=== PATIENT | male | born 1970 | race Two or more races ===

== ENCOUNTER → 2021-12-22 | Outpatient (CLI) | payer BC ==
[2021-12-22 07:50] LABS: Basophils # (auto) 0 10 ^3/uL (0-0.2); Eosinophils # (auto) 0.2 10 ^3/uL (0-0.8); Mean Corpuscular Hgb Conc. 34.7 g/dL (32.0-36.0); Neutrophils # (auto) 2.5 10 ^3/uL (1.6-8.6); Red Cell Distribution Width 13.7 % (11.8-14.3)
[2021-12-22 07:52] LABS: Basophils % (auto) 0.8 % (0.0-2.0); Eosinophils % (auto) 4.3 % (0.0-7.0); Hematocrit 43.9 % (41.0-53.0); Hemoglobin 15.2 g/dL (13.5-17.5); Lymphocytes # (auto) 1.5 10 ^3/uL (0.4-5.4); Lymphocytes % (auto) 30.7 % (10.0-50.0); Mean Corpuscular Hemoglobin 34.4 pg (28.0-32.0); Monocytes # (auto) 0.6 10 ^3/uL (0-1.3); Neutrophils % (auto) 52.2 % (37.0-80.0); Nucleated Red Blood Cells % 0.3 %; Red Blood Cells 4.43 10^6/uL (4.5-5.90); White Blood Cell 4.8 10^3/uL (4.4-10.8)
[2021-12-22 08:33] LABS: Albumin 3.6 g/dL (3.4-5.0); Calcium 8.9 mg/dL (8.5-10.1); Potassium 3.7 mmol/L (3.5-5.1)
[2021-12-22 08:38] LABS: BUN/Creatinine Ratio 11.4; Bilirubin, Total 0.6 mg/dL (0.2-1.0); Total Protein 7.8 g/dL (6.4-8.2)
== END | disposition home or self-care (01) ==
LOC: LAB 06:42
PROVIDERS: ATTEND Nurse Practitioner Family
DX: Z00.00 Encounter for general adult medical examination without abnormal findings (principal); I10 Essential (primary) hypertension; D50.9 Iron deficiency anemia, unspecified; R35.1 Nocturia; R73.03 Prediabetes
CPT/HCPCS: 36415; 80053; 80061; 82043; 83036; 84153; 85025

== ENCOUNTER → 2024-07-04 | Outpatient (CLI) | payer BC ==
[2024-07-04 08:58] LABS: Basophils # (auto) 0 10 ^3/uL (0-0.2); Basophils % (auto) 0.9 % (0.0-2.0); Eosinophils # (auto) 0.4 10 ^3/uL (0-0.8); Eosinophils % (auto) 9.3 % (0.0-7.0); Hematocrit 43.4 % (41.0-53.0); Hemoglobin 14.9 g/dL (13.5-17.5); Lymphocytes # (auto) 1.2 10 ^3/uL (0.4-5.4); Lymphocytes % (auto) 31.4 % (10.0-50.0); Mean Corpuscular Hemoglobin 34.6 pg (28.0-32.0); Mean Corpuscular Hgb Conc. 34.3 g/dL (32.0-36.0); Mean Corpuscular Volume 100.9 fL (80.0-100.0); Monocytes # (auto) 0.4 10 ^3/uL (0-1.3); Monocytes % (auto) 10.9 % (0.0-12.0); Neutrophils # (auto) 1.8 10 ^3/uL (1.6-8.6); Neutrophils % (auto) 47.5 % (37.0-80.0); Platelet Count (auto) 210 10^3/uL (140-450); Red Cell Distribution Width 14.4 % (11.8-14.3); White Blood Cell 3.8 10^3/uL (4.4-10.8)
[2024-07-04 09:46] LABS: Alanine Aminotransferase 45 U/L (7-40); Albumin 4.5 g/dL (3.2-4.8); Alkaline Phosphatase 76 U/L (46-116); Anion Gap 8 (5-15); Aspartate Aminotransferase 40 U/L (13-40); BUN/Creatinine Ratio 10.3 (10.0-20.0); Blood Urea Nitrogen 9 mg/dL (9-23); Calcium 9.4 mg/dL (8.7-10.4); Carbon Dioxide 26 mmol/L (20-31); Chloride 106 mmol/L (98-107); Glucose 113 mg/dL (74-106); LDL Cholesterol 158 mg/dL (< 100); Potassium 4.2 mmol/L (3.5-5.1); Sodium 140 mmol/L (136-145); Triglycerides 132 mg/dL (< 150)
[2024-07-04 09:47] LABS: Bilirubin, Total 0.6 mg/dL (0.2-1.0); Cholesterol 257 mg/dL (< 200); HDL Cholesterol 88 mg/dL (40-59); Total Protein 7.5 g/dL (5.7-8.2)
[2024-07-04 10:59] LABS: Prostate Specific Antigen 0.53 ng/mL (0.0-4.0)
[2024-07-04 11:05] LABS: Free T4 (Free Thyroxine) 1.03 ng/dL (0.89-1.76)
== END | disposition home or self-care (01) ==
LOC: LAB 08:14
PROVIDERS: ATTEND Nurse Practitioner Family
DX: I10 Essential (primary) hypertension (principal); R73.03 Prediabetes; R35.1 Nocturia; E66.01 Morbid (severe) obesity due to excess calories
CPT/HCPCS: 36415; 80053; 80061; 82043; 82306; 83036; 84153; 84439; 84443; 85025

== ENCOUNTER 2024-12-07 15:02 | Inpatient (IN) | payer BC ==
[~2024-12-07] VITALS: Ht 172.7 cm; Wt 102.4 kg
[2024-12-07 15:37] LABS: Basophils # (auto) 0 10 ^3/uL (0-0.2); Basophils % (auto) 0.5 % (0.0-2.0); Eosinophils # (auto) 0.1 10 ^3/uL (0-0.8); Eosinophils % (auto) 2.3 % (0.0-7.0); Hematocrit 45.5 % (41.0-53.0); Hemoglobin 15.5 g/dL (13.5-17.5); Lymphocytes % (auto) 24.9 % (10.0-50.0); Mean Corpuscular Volume 100.1 fL (80.0-100.0); Monocytes # (auto) 0.5 10 ^3/uL (0-1.3); Monocytes % (auto) 13.6 % (0.0-12.0); Neutrophils # (auto) 2.3 10 ^3/uL (1.6-8.6); Neutrophils % (auto) 58.7 % (37.0-80.0); Platelet Count (auto) 200 10^3/uL (140-450); Red Blood Cells 4.55 10^6/uL (4.5-5.90); Red Cell Distribution Width 14.6 % (11.8-14.3)
--- NOTE | 2024-12-07 15:44 | ED.PDOC ---
HPI Comments 54-year-old male who comes in with chief complaint of chest pain. The patient states that the pain has been going on approximately one week off and on. The pain is left-sided and nonradiating. There is no associated nausea, vomiting or shortness for breath. The patient also denies any history of this in the past. The patient states that the pain is dull. It began at rest and he is now rating it as a 2/10. The patient was able to ambulate into the emergency department's without any difficulty. Chief Complaint: Chest Pain Time Seen by MD: 15:12 Primary Care Provider: unknown Reviewed Notes: Nurses Notes, Medications, Allergies (No allergies to medications) Allergies: Coded Allergies: NO KNOWN ALLERGIES (Unverified , 12/07/24) Information Source: Patient Mode of Arrival: Ambulatory Severity: Moderate Timing: Days Duration: Intermittent Prehospital treatment: None Location: Chest (L) Radiation: No Radiation Quality: Other (Dull pressure-like pain) Onset: At Rest Cardiac Risk Factors: HTN PE Risk Factors: None History of: None Modifying Factors: Nothing Associated Signs and Symptoms: None Past Medical History PAST MEDICAL HISTORY: HTN Family History Family History: No family hx of Cancer, No family hx of DM, No family hx of Heart constance Social History Smoker: Non-Smoker Alcohol: Occasionally Drugs: Denies Drug Use Lives In: Home Constitutional: denies: chills, diaphoresis, fatigue, fever, malaise, sweats, weakness, others EENTM: denies: blurred vision, double vision, ear bleeding, ear discharge, ear drainage, ear pain, ear ringing, eye pain, eye redness, hearing loss, mouth pain, mouth swelling, nasal discharge, nose bleeding, nose congestion, nose pain, photophobia, tearing, throat pain, throat swelling, voice changes, others Respiratory: denies: cough, hemoptysis, orthopnea, SOB at rest, shortness of breath, SOB with excertion, stridor, wheezing, others Cardiovascular: reports: chest pain; denies: dizzy spells, diaphoresis, Dyspnea on exertion, edema, irregular heart beat, left arm pain, lightheadedness, palpitations, PND, syncope, others Gastrointestinal: denies: abdomen distended, abdominal pain, blood streaked bowels, constipated, diarrhea, dysphagia, difficulty swallowing, hematemesis, melena, nausea, poor appetite, poor fluid intake, rectal bleeding, rectal pain, vomiting, others Genitourinary: denies: burning, dysuria, flank pain, frequency, hematuria, incontinence, penile discharge, penile sore, pain, testicle pain, testicle swelling, urgency, others Neurological: denies: dizziness, fainting, headache, left sided numbness, left sided weakness, numbness, paresthesia, pre-existing deficit, right sided numbness, right sided weakness, seizure, speech problems, tingling, tremors, weakness, others Musculoskeletal: denies: back pain, gout, joint pain, joint swelling, muscle pain, muscle stiffness, neck pain, others Integumetry: denies: bruises, change in color, change in hair/nails, dryness, laceration, lesions, lumps, rash, wounds, others Allergic/Immunocompromised: denies: Difficulty Healing, Frequent Infections, Hives, Itching, others Hematologic/Lymphatic: denies: anemia, blood clots, easy bleeding, easy bruising, swollen glands, others Endocrine: denies: excessive hunger, excessive sweating, excessive thirst, excessive urination, flushing, intolerance to cold, intolerance to heat, unexplained weight gain, unexplained weight loss, others Psychiatric: denies: anxiety, bipolar disorder, depression, hopeless, panic disorder, schizophrenia, sleepless, suicidal, others Physical Exam General Appearance: Moderate Distress HEENT: Normal ENT Inspection, Pharynx Normal, TMs Normal Neck: Full Range of Motion, Non-Tender, Normal, Normal Inspection Respiratory: Chest Non-Tender, Lungs Clear, No Accessory Muscle Use, No Respiratory Distress, Normal Breath Sounds Cardiovascular: No Edema, No JVD, No Murmur, No Gallop, Normal Peripheral Pulses, Regular Rate/Rhythm Breast Exam: Deferred Gastrointestinal: No Organomegaly, Non Tender, No Pulsatile Mass, Normal Bowel Sounds, Soft Genitalia: Deferred Pelvic: Deferred Rectal: Deferred Extremities: No calf tenderness, Normal capillary refill, Normal inspection, Normal range of motion, Non-tender, No pedal edema Musculoskeletal : Apperance: Normal Neurologic: Alert, 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 Was a procedure done?: No CP Differential Dx Differential Diagnosis: Angina, [place], Pulmonary Embolus Differential Diagnosis: CHF Differential Diagnosis: Pericarditis X-Ray, Labs, Meds, VS Vital Signs Date Time Temp Pulse Resp B/P (MAP) Pulse Ox O2 Delivery O2 Flow Rate FiO2 12/07/24 19:04 75 18 98 Room Air* 0 21 12/07/24 19:00 98.3 75 18 147/103 (118) 98 98.3 12/07/24 18:30 68 18 139/96 (110) 98 12/07/24 16:20 101 12/07/24 16:20 97.9 101 18 138/96 (110) 100 97.9 12/07/24 15:52 90 12/07/24 15:52 101 12/07/24 15:10 97.9 101 18 137/96 (110) 100 97.9 12/07/24 15:07 101 Lab Test 12/07/24 16:17 12/07/24 16:06 12/07/24 15:14 Range/Units Urine Color Light-yellow Yellow Urine Clarity Clear Clear Urine pH 5.5 5.0-9.0 Urine Specific [place] 1.013 1.001-1.035 Urine Protein Negative Negative Urine Ketones Negative Negative Urine Blood Negative Negative /uL Urine Nitrite Negative Negative Urine Bilirubin Negative Negative Urine Urobilinogen Normal Negative mg/dL Urine Leukocyte Esterase Negative Negative /uL Urine RBC <1 0 - 3 /hpf Urine Microscopic WBC 0-3 /HPF Urine Squamous Epithelial Cells None seen <5 /hpf Urine Bacteria None seen None Seen /hpf Urine Glucose Normal Normal mg/dL Troponin I High Sensitivity 3 L < 3 L </=54 ng/L White Blood Count 4.0 L 4.4-10.8 10^3/uL Red Blood Count 4.55 4.5-5.90 10^6/uL Hemoglobin 15.5 13.5-17.5 g/dL Hematocrit 45.5 41.0-53.0 % Mean Corpuscular Volume 100.1 H 80.0-100.0 fL Mean Corpuscular Hemoglobin 34.0 H 28.0-32.0 pg Mean Corpuscular Hemoglobin Concent 34.0 32.0-36.0 g/dL Red Cell Distribution Width 14.6 H 11.8-14.3 % Platelet Count 200 140-450 10^3/uL Mean Platelet Volume 8.1 6.9-10.8 fL Neutrophils (%) (Auto) 58.7 37.0-80.0 % Lymphocytes (%) (Auto) 24.9 10.0-50.0 % Monocytes (%) (Auto) 13.6 H 0.0-12.0 % Eosinophils (%) (Auto) 2.3 0.0-7.0 % Basophils (%) (Auto) 0.5 0.0-2.0 % Neutrophils # (Auto) 2.3 1.6-8.6 10 ^3/uL Lymphocytes # (Auto) 1.0 0.4-5.4 10 ^3/uL Monocytes # (Auto) 0.5 0-1.3 10 ^3/uL Eosinophils # (Auto) 0.1 0-0.8 10 ^3/uL Basophils # (Auto) 0 0-0.2 10 ^3/uL Nucleated Red Blood Cells 0.0 % D-Dimer, Quantitative < 0.19 0.0-0.49 mg/L FEU Sodium Level 141 136-145 mmol/L Potassium Level 4.0 3.5-5.1 mmol/L Chloride Level 107 98-107 mmol/L Carbon Dioxide Level 25 20-31 mmol/L Anion Gap 9 5-15 Blood Urea Nitrogen 10 9-23 mg/dL Creatinine 0.93 0.700-1.30 mg/dL Glomerular Filtration Rate Calc 96 >90 mL/min BUN/Creatinine Ratio 10.8 10.0-20.0 Serum Glucose 122 H 74-106 mg/dL Calcium Level 10.4 8.7-10.4 mg/dL Current Medications Medications (Trade) Dose Ordered Sig/Irving Route Start Time Stop Time Status Last Admin Aspirin 162 mg ONCE ONCE PO 12/07/24 15:30 12/07/24 15:31 DC 12/07/24 16:15 IV Hep-Lock was established The CBC is within normal limits. The patient was being given aspirin here in the emergency department's PROCEDURE(s): CXR2 - CHEST TWO VIEWS ROUTINE Impression: Frontal and lateral chest radiographs demonstrate no acute osseous or superficial soft tissue abnormalities. The trachea is midline. The cardiac silhouette and mediastinum are within normal limits. No pneumothorax, pleural effusions, or consolidations. The patient was having a nitro strip placed on his chest The patient's CBC and chemistry panel are within normal limits The D-dimer and troponin level are negative The urine test is negative The patient was given aspirin 162 mg by mouth here in the emergency department's The patient was being admitted at this time Images Reviewed?: Images reviewed and evaluated by me Time of 1ST Reevaluation: 15:51 Reevaluation 1ST: Unchanged Patient Education/Counseling: Diagnosis, Treatment, Prognosis Family Education/Counseling: Diagnosis, Treatment, Prognosis Departure 1 Departure Time of Disposition: 19:36 Impression: Primary Impression: Acute chest pain Additional Impression: Acute coronary syndrome Disposition: 09 ADMITTED INPATIENT Admit to: Tele Condition: Fair Critical Care Note Critical Care Time?: No Stability Stability form required: Yes Unstable for transfer: Telemetry monitoring (Telemetry monitoring required), ED Physician Assesment (Clinical assesment) Heart Score Heart Score: Heart Score Response (Comments) Value History Moderate Suspicious 1 EKG Repolarization Disturb 1 Age 45-64 1 Risk Factors 1 or 2 risk factors 1 Troponin Normal limit 0 Total 4 I personally scribed for PARAM FLORES MD ([email or web address]) on 12/07/24 at 16:19. Electronically submitted by Iona Hackett ([email or web address]). PARAM FLORES MD Dec 07, 2024 15:44
--- NOTE | 2024-12-07 15:53 | DVH ---
EXAM: XY CHEST TWO VIEWS ROUTINE TECHNIQUE: Two radiographic views of the chest CLINICAL HISTORY: cp COMPARISON: None Findings/Impression: Frontal and lateral chest radiographs demonstrate no acute osseous or superficial soft tissue abnorma lities. The trachea is midline. The cardiac silhouette and mediastinum are within normal limits. No pneumothorax, pleural effusions, or consolidations.
--- NOTE | 2024-12-07 15:53 | ECG ---
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
[2024-12-07 15:54] LABS: Chloride 107 mmol/L (98-107); Sodium 141 mmol/L (136-145)
[2024-12-07 15:55] LABS: Anion Gap 9 (5-15); Calcium 10.4 mg/dL (8.7-10.4); Carbon Dioxide 25 mmol/L (20-31)
[2024-12-07 16:00] LABS: BUN/Creatinine Ratio 10.8 (10.0-20.0); Blood Urea Nitrogen 10 mg/dL (9-23)
[2024-12-07 16:01] LABS: Glucose 122 mg/dL (74-106)
[2024-12-07] MEDS: ASPirin 81 mg TAB PO ONE (16:15)
[2024-12-07 16:45] LABS: Urine Bacteria None Seen /hpf (None Seen)
[2024-12-07 16:48] LABS: Urine Blood Negative /uL (Negative); Urine Clarity Clear (Clear); Urine Color Light-Yellow (Yellow); Urine Protein, UAD Negative (Negative); Urine Specific Gravity 1.013 (1.001-1.035); Urine Squamous Epithelial Cell None Seen /hpf (<5); Urine Urobilinogen Normal (Negative); Urine pH 5.5 (5.0-9.0)
[2024-12-07 19:04] VITALS: PULSE 75; RESP 18; O2SAT 98
[2024-12-07 20:00] VITALS: PULSE 66; RESP 14; O2SAT 96
[2024-12-07] MEDS: NITROGLYCERIN 0.2MG/HR TOPICAL PATCH TD ONE (20:52)
[2024-12-07] MEDS ORDERED: ONDANSETRON HCL 4 MG/2 ML VIAL IV PRN (21:15)
[2024-12-07] MEDS ORDERED: NITROGLYCERIN 0.4 MG SL TAB SL PRN (21:15)
[2024-12-07] MEDS ORDERED: ACETAMINOPHEN 325 MG TAB PO PRN (21:15)
[2024-12-07] MEDS ORDERED: MORPHINE SULFATE INJ 2 MG/ml SYRG IV PRN ×2 (21:15)
--- NOTE | 2024-12-07 21:19 | DVHHPRES ---
History of Present Illness Resident Creating Document: BASIL TAYLOR RESIDENT Reason for Visit: chest pain History of Present Illness This is a 54-year-old male with a past medical history of hypertension presented to the ED tonight with the complaints of chest pain. Per patient, chest pain started over a week ago whilst at rest.It located in the left precordium and characterized as "pressure-like" or feels like a "shock to his chest" with intensity of 2/10 initially but currently 1/10 after nitroglycerin. Pain is nonradiating and it is reproducible with superficial light palpation. He denies nausea, vomiting, diaphoresis,changes in bowel habits recent viral infections or sick contacts. He denies any headache, dysuria or urinary incontinence. Lab shows leukopenia otherwise unremarkable. Past medical history: HTN Past Surgical history: NONE FAMILY HISTORY: Not sure Medication: Losartan Review of Systems Constitutional: No: Fever, Chills, Sweats, Weakness, Malaise, Other Eyes: No: Pain, Vision change, Conjunctivae inflammation, Eyelid inflammation, Other, Redness ENT: No: Ear pain, Ear discharge, Nose pain, Nose discharge, Nose congestion, Mouth pain, Mouth swelling, Throat pain, Throat swelling, Other Respiratory: No: Cough, Dry, Shortness of breath, SOB with excertion, Wheezing, Hemoptysis, Pleuritic Pain, Sputum, Wheezing, Other Cardiovascular: Chest Pain Gastrointestinal: No: Nausea, Vomiting, Abdominal Pain, Diarrhea, Constipation, Melena, Hematochezia, Other Genitourinary: No Dysuria, No Frequency, No Incontinence, No Hematuria, No Retention, No Other Musculoskeletal: No: other, neck pain, shoulder pain, arm pain, back pain, hand pain, leg pain, foot pain Skin: No: Rash, Lesions, Jaundice, Bruising, Other Allergies: Coded Allergies: NO KNOWN ALLERGIES (Unverified , 12/07/24) Exam Vital Signs Vital Signs Date Time Temp Pulse Resp B/P (MAP) Pulse Ox O2 Delivery O2 Flow Rate FiO2 12/07/24 20:52 152/92 12/07/24 19:04 75 18 98 Room Air* 0 21 12/07/24 19:00 98.3 98.3 Exam General Appearance: Alert, Oriented X3, Cooperative, No acute distress HEENT: Atraumatic, PERRLA, EOMI, Mucous membrane moist/pink Respiratory: Clear to auscultation, Normal air movement Cardiovascular: Regular rate, Normal S1, Normal S2, No murmurs, reproducible pain with deep palpation Abdominal: NO distention, no tenderness, bowel sounds present, no scars noted Extremities: No clubbing, No cyanosis, No edema, Normal pulses, No tenderness/swelling Skin: No rashes, No breakdown, No significant lesion Neuro: Normal gait, Normal speech, Strength at 5/5 X4 ext, Normal tone, Sensation intact, Cranial nerves 3-12 NL, Reflexes 2+ Psych/Mental Status: Mental status NL, Mood NL Labs/Xrays Labs Test 12/07/24 16:17 12/07/24 16:06 12/07/24 15:14 Range/Units Urine Color Light-yellow Yellow Urine Clarity Clear Clear Urine pH 5.5 5.0-9.0 Urine Specific [place] 1.013 1.001-1.035 Urine Protein Negative Negative Urine Ketones Negative Negative Urine Blood Negative Negative /uL Urine Nitrite Negative Negative Urine Bilirubin Negative Negative Urine Urobilinogen Normal Negative mg/dL Urine Leukocyte Esterase Negative Negative /uL Urine RBC <1 0 - 3 /hpf Urine Microscopic WBC 0-3 /HPF Urine Squamous Epithelial Cells None seen <5 /hpf Urine Bacteria None seen None Seen /hpf Urine Glucose Normal Normal mg/dL Troponin I High Sensitivity 3 L </=54 ng/L White Blood Count 4.0 L 4.4-10.8 10^3/uL Red Blood Count 4.55 4.5-5.90 10^6/uL Hemoglobin 15.5 13.5-17.5 g/dL Hematocrit 45.5 41.0-53.0 % Mean Corpuscular Volume 100.1 H 80.0-100.0 fL Mean Corpuscular Hemoglobin 34.0 H 28.0-32.0 pg Mean Corpuscular Hemoglobin Concent 34.0 32.0-36.0 g/dL Red Cell Distribution Width 14.6 H 11.8-14.3 % Platelet Count 200 140-450 10^3/uL Mean Platelet Volume 8.1 6.9-10.8 fL Neutrophils (%) (Auto) 58.7 37.0-80.0 % Lymphocytes (%) (Auto) 24.9 10.0-50.0 % Monocytes (%) (Auto) 13.6 H 0.0-12.0 % Eosinophils (%) (Auto) 2.3 0.0-7.0 % Basophils (%) (Auto) 0.5 0.0-2.0 % Neutrophils # (Auto) 2.3 1.6-8.6 10 ^3/uL Lymphocytes # (Auto) 1.0 0.4-5.4 10 ^3/uL Monocytes # (Auto) 0.5 0-1.3 10 ^3/uL Eosinophils # (Auto) 0.1 0-0.8 10 ^3/uL Basophils # (Auto) 0 0-0.2 10 ^3/uL Nucleated Red Blood Cells 0.0 % D-Dimer, Quantitative < 0.19 0.0-0.49 mg/L FEU Sodium Level 141 136-145 mmol/L Potassium Level 4.0 3.5-5.1 mmol/L Chloride Level 107 98-107 mmol/L Carbon Dioxide Level 25 20-31 mmol/L Anion Gap 9 5-15 Blood Urea Nitrogen 10 9-23 mg/dL Creatinine 0.93 0.700-1.30 mg/dL Glomerular Filtration Rate Calc 96 >90 mL/min BUN/Creatinine Ratio 10.8 10.0-20.0 Serum Glucose 122 H 74-106 mg/dL Calcium Level 10.4 8.7-10.4 mg/dL Assessment/Plan Assessment/Plan Unstable angina --> Negative Troponin x3 --> EKG unremarkable --> Echo pending --> Remote history Cocaine and Marijuana use in his 20s --> UDS unremarkable Hypertension BP: 157/92 --> Losartan 50 daily Leukopenia wbc: 4.0 Repeat CBC in the AM Macrocytosis --> Check folate, Martha B12 Hyperglycemia --> A1c 5.7 Obesity --> BMI 34.3 Remote history Cocaine use in his 20s Care discussed for more than 30 minutes, full code Case and plan discussed with Dr. Shelton Plan discussed with: Patient, Spouse My Orders Orders - BASIL TAYLOR RESIDENT Procedure Category Date Status Time Admit ADMIT 12/07/24 Transmitted 21:02 Code Status CODE 12/07/24 Transmitted 21:02 Vital Signs SHELBY 12/07/24 Transmitted 21:02 Review Orders With SHELBY 12/07/24 Transmitted Adm. 21:02 Acetaminophen Tablet PHA 12/07/24 Transmitted (Tylenol Tablet) 21:15 Notify Of Changes SHELBY 12/07/24 Transmitted From Base 21:02 Advance Directive SHELBY 12/07/24 Transmitted 21:02 Patient Condition ORDERS 12/07/24 Transmitted 21:02 Allergies SHELBY 12/07/24 Transmitted 21:02 Ondansetron Hcl PHA 12/07/24 Transmitted (Zofran) 21:15 Morphine 2mg Iv Q4hprn PHA 12/07/24 Transmitted 21:15 Lovenox 40mg PHA 12/08/24 Transmitted 10:00 Nitroglycerin PHA 12/07/24 Transmitted Sublingual (Ntrostat 21:15 Morphine Sulfate PHA 12/07/24 Transmitted Injection 21:15 Notify Md Of Changes SHELBY 12/07/24 Transmitted From Base 21:02 [facility] 12/07/24 Transmitted 24 Hours 21:02 Echo 2d Mode Cardiac US 12/07/24 Transmitted DOP 21:02 Erythrocyte LAB 12/07/24 Transmitted Sedimentation Rate 21:02 C-Reactive Protein LAB 12/07/24 Transmitted 21:02 Rapid Influenza A&B LAB 12/07/24 Transmitted 21:02 Covid19 Antigen Sally LAB 12/07/24 Transmitted Hemoglobin A1c LAB 12/07/24 Transmitted 21:02 Lipid Panel LAB 12/07/24 Transmitted 21:02 Atorvastatin (Lipitor) PHA 12/07/24 Transmitted 22:00 Aspirin Tablet PHA 12/08/24 Transmitted 10:00 Date of Service: Dec 07, 2024 Billing Provider: PAT SHELTON MD Common Visit Codes: [id number] INP/OBS CARE (HIGH) BASIL TAYLOR RESIDENT Dec 07, 2024 21:19 PAT SHELTON MD Dec 08, 2024 11:57
[2024-12-07 21:45] LABS: Cholesterol 282 mg/dL (< 200); HDL Cholesterol 85 mg/dL (40-59); LDL Cholesterol 182 mg/dL (< 100); Triglycerides 226 mg/dL (< 150)
[2024-12-07 21:53] LABS: Magnesium 2.2 mg/dL (1.6-2.6)
[2024-12-07 21:54] LABS: Phosphorus 2.9 mg/dL (2.4-5.1)
[2024-12-07 21:55] LABS: Erythrocyte Sedimentation Rate 8 mm/hr (0-20)
[2024-12-07 22:06] LABS: Amphetamine Screen, Urine Neg (NEGATIVE); Barbiturate Scree,Urine Neg (NEGATIVE); Benzodiazephine Screen, Urine Neg (NEGATIVE); Cannabinoid Screen, Urine Neg (NEGATIVE); Cocaine Screen, Urine Neg (NEGATIVE); Opiate Scree,Urine Neg (NEGATIVE); Phencyclidine Screen, Urine Neg (NEGATIVE)
[2024-12-07] MEDS: ATORVASTATIN 20 MG TAB PO SCH (22:21)
[2024-12-07] MEDS: LOSARTAN POTASSIUM 50 MG TAB PO ONE (22:22)
[2024-12-07 23:10] LABS: INR 1.03 (0.9-1.15); Partial Thromboplastin Time 27.8 SEC (24.5-34.5); Prothrombin Time 10.9 sec (9.3-11.8)
[2024-12-07 23:17] LABS: COVID19 ANTIGEN SOFIA FIA NEGATIVE (NEGATIVE); Rapid Influenza A Negative (Negative); Rapid Influenza B Negative (Negative)
[2024-12-08 04:19] LABS: Basophils # (auto) 0 10 ^3/uL (0-0.2); Basophils % (auto) 0.5 % (0.0-2.0); Eosinophils # (auto) 0.1 10 ^3/uL (0-0.8); Eosinophils % (auto) 3.5 % (0.0-7.0); Hematocrit 39.7 % (41.0-53.0); Hemoglobin 13.9 g/dL (13.5-17.5); Lymphocytes % (auto) 24.4 % (10.0-50.0); Mean Corpuscular Hemoglobin 34.9 pg (28.0-32.0); Mean Corpuscular Volume 99.6 fL (80.0-100.0); Monocytes # (auto) 0.5 10 ^3/uL (0-1.3); Neutrophils # (auto) 2.4 10 ^3/uL (1.6-8.6); Neutrophils % (auto) 58.6 % (37.0-80.0); Nucleated Red Blood Cells % 0.1 %; Platelet Count (auto) 186 10^3/uL (140-450); Red Blood Cells 3.99 10^6/uL (4.5-5.90); Red Cell Distribution Width 14.9 % (11.8-14.3); White Blood Cell 4.2 10^3/uL (4.4-10.8)
[2024-12-08 04:33] LABS: Calcium 9.6 mg/dL (8.7-10.4)
[2024-12-08 04:38] LABS: BUN/Creatinine Ratio 10.6 (10.0-20.0); Blood Urea Nitrogen 9 mg/dL (9-23)
[2024-12-08 04:43] LABS: Chloride 106 mmol/L (98-107); Potassium 3.8 mmol/L (3.5-5.1); Sodium 140 mmol/L (136-145)
[2024-12-08 04:47] LABS: Glucose 113 mg/dL (74-106)
[2024-12-08 06:04] LABS: Anion Gap 8 (5-15); Carbon Dioxide 26 mmol/L (20-31)
--- NOTE | 2024-12-08 08:33 | ECG ---
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
[2024-12-08] MEDS: LOSARTAN POTASSIUM 50 MG TAB PO SCH (10:11)
[2024-12-08] MEDS: ENOXAPARIN SOD 40 MG/0.4 ML SYRINGE SC SCH (10:12)
[2024-12-08] MEDS: ASPirin 81 mg TAB PO SCH (10:12)
--- NOTE | 2024-12-08 14:18 | DVHPNRES ---
Progress Note Date Seen: Dec 08, 2024 Resident Creating Document: JUANJOSE MÉNDEZ RESIDENT Medical Necessity Reason Pt with a Central, PICC or Fol: No Subjective Review of Systems This is a 54-year-old male with a past medical history of hypertension presented to the ED tonight with the complaints of chest pain. Per patient, chest pain started over a week ago whilst at rest.It located in the left precordium and characterized as "pressure-like" or feels like a "shock to his chest" with intensity of 2/10 initially but currently 1/10 after nitroglycerin. Pain is nonradiating and it is reproducible with superficial light palpation. He denies nausea, vomiting, diaphoresis,changes in bowel habits recent viral infections or sick contacts. He denies any headache, dysuria or urinary incontinence. Lab shows leukopenia otherwise unremarkable. Patient was seen and examined on the bedside. He is alert oriented x3. Complaint of mild chest discomfort. No other active complaint. Constitutional: No: Fever, Chills, Sweats, Weakness, Malaise, Other Eyes: No: Pain, Vision change, Conjunctivae inflammation, Eyelid inflammation, Other, Redness ENT: No: Ear pain, Ear discharge, Nose pain, Nose discharge, Nose congestion, Mouth pain, Mouth swelling, Throat pain, Throat swelling, Other Respiratory: Shortness of breath, improving No: Cough, Dry,Wheezing, Hemoptysis, Pleuritic Pain, Sputum, Wheezing, Other Cardiovascular: Chest Pain, No Palpitations, Orthopnea, Paroxysmal Noc. Dyspnea, Edema, Lt Headedness, Other Gastrointestinal: No: Nausea, Vomiting, Abdominal Pain, Diarrhea, Constipation, Melena, Hematochezia, Other Musculoskeletal: No: other, neck pain, shoulder pain, arm pain, back pain, hand pain, leg pain, foot pain Neurological:; No: Weakness, Numbness, Incoordination, Change in speech, Confusion, Seizures Objective vital signs Vital Sign Date Time Temp Pulse Resp B/P (MAP) Pulse Ox O2 Delivery O2 Flow Rate FiO2 12/08/24 10:11 106/70 12/08/24 10:00 92 18 92 12/08/24 08:00 Room Air* 0 21 12/08/24 08:00 98.4 98.4 medications Current Medications Medications Dose Ordered Sig/Irving Route Start Time Stop Time Status Last Admin Dose Admin Acetaminophen 650 mg Q6HP PRN PO 12/07/24 21:15 Ondansetron HCl 4 mg Q4HP PRN IV 12/07/24 21:15 Morphine Sulfate 2 mg Q4HPRN PRN IV 12/07/24 21:15 Enoxaparin Sodium 40 mg DAILY SC 12/08/24 10:00 12/08/24 10:12 40 MG Nitroglycerin 0.4 mg Q5MINP PRN SL 12/07/24 21:15 Morphine Sulfate 2 mg Q30M PRN IV 12/07/24 21:15 Atorvastatin Calcium 40 mg HS PO 12/07/24 22:00 12/07/24 22:21 40 MG Aspirin 81 mg DAILY PO 12/08/24 10:00 12/08/24 10:12 81 MG Losartan Potassium 50 mg DAILY PO 12/08/24 10:00 12/08/24 10:11 50 MG Examination Physical examination: General Appearance: Alert, Oriented X3, Cooperative, No acute distress HEENT: Atraumatic, PERRLA, EOMI, Mucous membrane moist/pink Respiratory: Clear to auscultation, Normal air movement Cardiovascular: Regular rate, Normal S1, Normal S2, No murmurs, no chest wall tenderness Abdominal: Normal bowel sounds, Soft, No tenderness, No hepatospenomegaly, No masses Extremities: No clubbing, No cyanosis, No edema, Normal pulses, No tenderness/swelling Skin: No rashes, No breakdown, No significant lesion Neuro: Normal gait, Normal speech, Strength at 5/5 X4 ext, Normal tone, Sensation intact, grossly intact cranial nerves. Psych/Mental Status: Mental status NL, Mood NL laboratory and microbiology Laboratory Tests 12/08/24 03:52 Test 12/08/24 03:52 Range/Units Serum Glucose 113 H 74-106 mg/dL Labs and/or images reviewed: Labs reviewed by me, Image(s) reviewed by me Problem List/Assessment/Plan Problem List/Assessment/Plan Assessment and plan: # Acute chest pain rule out ACS - EKG revealed normal sinus rhythm and no ST-T changes - Troponin was unremarkable - chest x-ray revealed normal study. - patient was given aspirin 162 mg p.o. once - Continue aspirin 81 mg po daily and atorvastatin 40 mg at HS - Pending Echo # Hypertensive heart disease - Continue losartan 50 mg p.o. daily PUD prophylaxis : Pepcid DVT prophylaxis : Lovenox Code status discussed with with the patient for more than 20 minutes full code Plan discussed with Dr. Hicks Plan discussed with: Patient, Other JUANJOSE MÉNDEZ RESIDENT Dec 08, 2024 14:18
[2024-12-08 19:30] VITALS: PULSE 85; RESP 13; O2SAT 95
[2024-12-08 21:02] VITALS: BP 162/92; PULSE 97; RESP 17; TEMP 98.9; O2SAT 94
[2024-12-09] VITALS (8 sets, daily range): BP systolic 117–127; BP diastolic 57–82; PULSE 56–73; RESP 16–19; TEMP 98–98.8; O2SAT 95–98
[2024-12-09] MEDS ORDERED: LOSA-533 PO (00:16)
[2024-12-09] MEDS ORDERED: ASPI81CH59 PO (16:37)
[2024-12-09] MEDS ORDERED: ATOR40TA52 PO (16:37)
--- NOTE | 2024-12-09 16:41 | DVHDSRES ---
Discharge Summary Date of Admission Resident Creating Document: JUANJOSE MÉNDEZ RESIDENT Dec 07, 2024 at 21:02 Date of Discharge: Dec 09, 2024 Admitting Diagnosis Acute chest pain rule out ACS Wounds: No wound was present Labs/Diagnostic Data: Laboratory Results Test 12/08/24 03:52 12/07/24 22:27 12/07/24 22:03 12/07/24 16:17 White Blood Count 4.2 10^3/uL (4.4-10.8) Red Blood Count 3.99 10^6/uL (4.5-5.90) Hemoglobin 13.9 g/dL (13.5-17.5) Hematocrit 39.7 % (41.0-53.0) Mean Corpuscular Volume 99.6 fL (80.0-100.0) Mean Corpuscular Hemoglobin 34.9 pg (28.0-32.0) Mean Corpuscular Hemoglobin Concent 35.0 g/dL (32.0-36.0) Red Cell Distribution Width 14.9 % (11.8-14.3) Platelet Count 186 10^3/uL (140-450) Mean Platelet Volume 7.8 fL (6.9-10.8) Neutrophils (%) (Auto) 58.6 % (37.0-80.0) Lymphocytes (%) (Auto) 24.4 % (10.0-50.0) Monocytes (%) (Auto) 13.0 % (0.0-12.0) Eosinophils (%) (Auto) 3.5 % (0.0-7.0) Basophils (%) (Auto) 0.5 % (0.0-2.0) Neutrophils # (Auto) 2.4 10 ^3/uL (1.6-8.6) Lymphocytes # (Auto) 1.0 10 ^3/uL (0.4-5.4) Monocytes # (Auto) 0.5 10 ^3/uL (0-1.3) Eosinophils # (Auto) 0.1 10 ^3/uL (0-0.8) Basophils # (Auto) 0 10 ^3/uL (0-0.2) Nucleated Red Blood Cells 0.1 % Sodium Level 140 mmol/L (136-145) Potassium Level 3.8 mmol/L (3.5-5.1) Chloride Level 106 mmol/L (98-107) Carbon Dioxide Level 26 mmol/L (20-31) Anion Gap 8 (5-15) Blood Urea Nitrogen 9 mg/dL (9-23) Creatinine 0.85 mg/dL (0.700-1.30) Glomerular Filtration Rate Calc 102 mL/min (>90) BUN/Creatinine Ratio 10.6 (10.0-20.0) Serum Glucose 113 mg/dL (74-106) Calcium Level 9.6 mg/dL (8.7-10.4) Influenza Type A Antigen Negative (Negative) Influenza Type B Antigen Negative (Negative) SARS-CoV-2 Antigen (Rapid) Negative (NEGATIVE) Prothrombin Time 10.9 sec (9.3-11.8) Prothrombin Time INR 1.03 (0.9-1.15) Activated Partial Thromboplast Time 27.8 SEC (24.5-34.5) Lactic Acid Level 1.3 mmol/L (0.4-2.0) Plasma/Serum Blood Alcohol < 3.0 mg/dL (<10) Urine Color Light-yellow (Yellow) Urine Clarity Clear (Clear) Urine pH 5.5 (5.0-9.0) Urine Specific [place] 1.013 (1.001-1.035) Urine Protein Negative (Negative) Urine Ketones Negative (Negative) Urine Blood Negative /uL (Negative) Urine Nitrite Negative (Negative) Urine Bilirubin Negative (Negative) Urine Urobilinogen Normal mg/dL (Negative) Urine Leukocyte Esterase Negative /uL (Negative) Urine RBC <1 /hpf (0 - 3) Urine Microscopic WBC /HPF (0-3) Urine Squamous Epithelial Cells None seen /hpf (<5) Urine Bacteria None seen /hpf (None Seen) Urine Glucose Normal mg/dL (Normal) Urine Opiates Screen Neg (NEGATIVE) Urine Fentanyl Screen Neg (NEGATIVE) Urine Barbiturates Screen Neg (NEGATIVE) Urine Phencyclidine Screen Neg (NEGATIVE) Urine Amphetamines Screen Neg (NEGATIVE) Urine Benzodiazepines Screen Neg (NEGATIVE) Urine Cocaine Screen Neg (NEGATIVE) Urine Cannabinoids Screen Neg (NEGATIVE) Test 12/07/24 16:06 12/07/24 15:14 Troponin I High Sensitivity 3 ng/L (</=54) Erythrocyte Sedimentation Rate 8 mm/hr (0-20) D-Dimer, Quantitative < 0.19 mg/L FEU (0.0-0.49) Hemoglobin A1c 5.7 % A1C (<5.7) Phosphorus Level 2.9 mg/dL (2.4-5.1) Magnesium Level 2.2 mg/dL (1.6-2.6) C-Reactive Protein High Sensitivity 0.36 mg/dL (<1.0) Triglycerides Level 226 mg/dL (< 150) Cholesterol Level 282 mg/dL (< 200) LDL Cholesterol 182 mg/dL (< 100) HDL Cholesterol 85 mg/dL (40-59) Vitamin B12 Level 770 pg/mL (211-911) Thyroid Stimulating Hormone (TSH) 2.01 uIU/mL (0.55-4.78) Other Laboratory Tests 12/08/24 03:52 Brief Hx & Hospital Course: This is a 54-year-old male with a past medical history of hypertension presented to the ED tonight with the complaints of chest pain. Per patient, chest pain started over a week ago whilst at rest.It located in the left precordium and characterized as "pressure-like" or feels like a "shock to his chest" with intensity of 2/10 initially but currently 1/10 after nitroglycerin. Pain is nonradiating and it is reproducible with superficial light palpation. He denies nausea, vomiting, diaphoresis,changes in bowel habits recent viral infections or sick contacts. He denies any headache, dysuria or urinary incontinence. Hospital course: EKG revealed normal sinus rhythm and no ST-T changes ,Troponin was unremarkable and chest x-ray revealed normal study. patient was given aspirin 162 mg p.o. once and continuing aspirin 81 mg po daily and atorvastatin 40 mg at HS. Echo was done but did not read by the outside sales and advised the patient to follow up with PCP for the echo report. BP was controlled with continue losartan 50 mg p.o. daily. Patient was feeling well without complaining of any chest pain during morning round and discharge plan was discussed with the patient. Patient is being discharged to home with aspirin 81 mg p.o. daily and atorvastatin 40 mg at HS and advised to continue home medication. Patient was also advised to follow up with PCP in 1 week. Physical examination: General Appearance: Alert, Oriented X3, Cooperative, No acute distress HEENT: Atraumatic, PERRLA, EOMI, Mucous membrane moist/pink Respiratory: Clear to auscultation, Normal air movement Cardiovascular: Regular rate, Normal S1, Normal S2, No murmurs, no chest wall tenderness Abdominal: Normal bowel sounds, Soft, No tenderness, No hepatospenomegaly, No masses Extremities: No clubbing, No cyanosis, No edema, Normal pulses, No tenderness/swelling Skin: No rashes, No breakdown, No significant lesion Neuro: Normal gait, Normal speech, Strength at 5/5 X4 ext, Normal tone, Sensation intact, Cranial nerves 3-12 NL, Reflexes 2+ Psych/Mental Status: Mental status NL, Mood NL Consults/Reason for consult No consultation was done Operations or Procedures EXAM: XY CHEST TWO VIEWS ROUTINE TECHNIQUE: Two radiographic views of the chest CLINICAL HISTORY: cp COMPARISON: None Findings/Impression: Frontal and lateral chest radiographs demonstrate no acute osseous or superficial soft tissue abnormalities. The trachea is midline. The cardiac silhouette and mediastinum are within normal limits. No pneumothorax, pleural effusions, or consolidations. Condition at Discharge: Stable Final Diagnosis/Problems List Acute chest pain ruled out ACS Hypertensive heart disease Discharge Disposition: Home Discharge Instruct/Medications Diet: Cardiac 2g Na,low cholest Activity: No Restrictions, As Tolerated Follow Up/Referral: Follow up with PCP in 1 week Medications: As per EMR Discharge Statement: "Patient was advised to return to the ER or call 911 if any headaches, dizziness, shortness of breath, chest pain, abdominal pain, bleeding, fevers, or worsening of medical condition. Patient was counseled about treatment plan, medications, possible side effects, patientverbalized understanding. All questions were answered to the best of my ability. This discharge took greater then 30 minutes in planning, reviewing documentation, counseling the patient, and discussing with other team members." ASSESSMENT ASSESSMENT Assessment Acute chest pain ruled out ACS Hypertensive heart disease JUANJOSE MÉNDEZ RESIDENT Dec 09, 2024 16:41
--- NOTE | 2024-12-09 21:49 | DVHSR ---
APPROVED REPORT EXAM: Two-dimensional and M-mode echocardiogram with Doppler and color Doppler. Mitral Valve MitralMitral Stenosis E/A ratio0.02D MVAcm2 LEFT VENTRICLE The left ventricle is normal size. The left ventricle is normal in structure and function. Left ventricle systolic function is normal. The Ejection Fraction is 55-60%. No regional wall motion abnormalities noted. RIGHT VENTRICLE The right ventricle is normal size. There is normal right ventricular wall thickness. The right ventricular systolic function is normal. ATRIA The left atrium size is normal. The right atrium size is normal. The interatrial septum is intact with no evidence for an atrial septal defect. MITRAL VALVE The mitral valve is normal in structure and function. There is no evidence of mitral valve prolapse. There is no mitral valve stenosis. There is no mitral valve regurgitation noted. PULMONIC VALVE The pulmonary valve is normal in structure and function. There is no pulmonic valvular regurgitation. There is no pulmonic valvular stenosis. TRICUSPID VALVE The tricuspid valve is normal in structure and function. There is no tricuspid valve regurgitation noted. There is no tricuspid valve prolapse or vegetation. There is no tricuspid valve stenosis. AORTIC VALVE The aortic valve is normal in structure and function. No aortic regurgitation is present. There is no aortic valvular stenosis. There is no aortic valvular vegetation. GREAT VESSELS The aortic root is normal in size. PERICARDIAL EFFUSION There is a no pericardial effusion. Conclusion There is moderate LVH. The left ventricle is normal in structure and function. Left ventricle systolic function is normal. The Ejection Fraction is 55-60%. There is no gross valvular pathology There is a no pericardial effusion.
== END 2024-12-09 18:53 | disposition home or self-care (01) | DRG 311 ==
LOC: ER 15:02 → OVERFLOW 21:02 → TELE-WESTW 12-08 21:00
PROVIDERS: ADMIT Student in an Organized Health Care Education/Training Program; ATTEND Student in an Organized Health Care Education/Training Program
DX: I20.0 Unstable angina (principal); D75.89 Other specified diseases of blood and blood-forming organs; R73.9 Hyperglycemia, unspecified; E66.9 Obesity, unspecified; I11.9 Hypertensive heart disease without heart failure; Z68.34 Body mass index [BMI] 34.0-34.9, adult; Z79.899 Other long term (current) drug therapy
CPT/HCPCS: 36415; 71046; 80048; 80061; 80307; 80320; 81001; 82607; 83036; 83605; 83735; 84100; 84443; 84484; 85025; 85379; 85610; 85652; 85730; 86141; 87426; 87804; 93005; 93306; G0378

== ENCOUNTER → 2024-12-31 | Outpatient (CLI) | payer BC ==
[~2024-12-31] VITALS: Ht 172.7 cm; Wt 102.1 kg
[~2024-12-31] MED LIST: ASPI81CH59 PO; ATOR40TA52 PO; LOSA-533 PO
--- NOTE | 2024-12-31 10:16 | DVHCARD ---
Cardiology Stress Test [place] Treadmill Stress Test [place] Referring MD: MD Dandre Protocol: Harsh (with cardiolite) Reason for referral: Chest Pain Target heart Rate:@85%: 139 Percent MPHR: 164 METS: 7.0 Resting Heart rate: 58 Resting Blood Pressure: 149/95 Exercise Heart Rate: 162 Exercise Blood Pressure: 186/71 Reason for Termination of Test: Shortness of breath Baseline EKG: Sinus bradycardia Stress EKG: Sinus tachycardia with artifact Functional Capacity: Mod. Decreased Heart Rate Response: Adequate Blood Pressure Response: Hypertensive Clinical response: Non-ischemic Arrhythmia?: No Cardiolite Injected?: Yes ST-T Changes: Non/Minimal Probability of Inducible Ische: Perfusion result pending Comments: Patient requested to stop at 5 minutes and 3 seconds due to SOB Date of Service: Dec 31, 2024 Billing Provider: ELSA DOUGHERTY Cardiology Common Codes: PROCEDURE ONLY Treadmill W/Cardiolite Nuclear: [id number], INTERP, RPT ELSA DOUGHERTY Dec 31, 2024 10:16
--- NOTE | 2025-01-01 15:50 | DVHSR ---
APPROVED REPORT Exam: Nuclear Stress Test Indication: chest pain BMI: 0 Medical History Medical History: CP, HTN, HLD Stress Test Details Stress Test: Exercise stress testing was performed using a Harsh protocol. HR Resting HR: 58 bpmMax Heart Rate (APMHR): 164.488051 bpm Max HR Achieved: 162 bpmTarget HR (85% APMHR): 139.099427 bpm % of APMHR: 98.78 Recovery HR: 104 bpm BP Resting BP: 149/95 mmHg Recovery BP: 163/92 mmHg ECG Resting ECG: Sinus Bradycardia Clinical Reason for Termination: Completed protocol Stress ECG Conclusion lvef 72% normal spect normal perfusion scan NM EXAM: Myocardial Perfusion REST/STRESS Imaging Protocol: Rest Tc-99m/Stress Tc-99m 1 day Resting Data Rest SPECT myocardial perfusion imaging was performed in supine position 60 minutes following the int ravenous injection of 13 mCi of Tc-99m Sestamibi. Time of rest injection: 0743 Time of rest imagin Administration Route: IV Administration Site: Right AC Pharmacologic Stress Pharmacologic stress test was performed by injecting Regadenoson 0.4 mg IV push followed by the intra venous injection of mCi of Time of stress injection: Time of stress imaging: Administration Route: Administration Site: Gated Stress SPECT was performed minutes after stress injection. Exercise Stress At peak stress, the patient was injected intravenously with 33mCi of Tc-99m Sestamibi. Time of stress injection: 0857 Time of stress imagin Administration Route: IV Administration Site: Right AC Patient continued to exercise for 5.3 minute(s). Gated Stress SPECT was performed 30 minutes after stress injection. The images were gated to evaluate regional wall motion and calculate left ventricular ejection fracti on. Stress only was performed in the Supine position. Nuclear Conclusion Nuclear Findings: negative for ischemia lvef 72% normal spect normal perfusion scan
== END | disposition home or self-care (01) ==
LOC: XYW 07:16
PROVIDERS: ATTEND Internal Medicine
DX: R00.1 Bradycardia, unspecified (principal); R07.9 Chest pain, unspecified; I10 Essential (primary) hypertension; E78.5 Hyperlipidemia, unspecified
CPT/HCPCS: 78452; 93017

== ENCOUNTER 2025-02-19 11:05 | Outpatient (CLI) | payer BC ==
[2025-02-19 11:24] LABS: Basophils # (auto) 0 10 ^3/uL (0-0.2); Basophils % (auto) 0.4 % (0.0-2.0); Eosinophils # (auto) 0.1 10 ^3/uL (0-0.8); Eosinophils % (auto) 1.5 % (0.0-7.0); Hematocrit 46.1 % (41.0-53.0); Hemoglobin 15.6 g/dL (13.5-17.5); Lymphocytes # (auto) 1.2 10 ^3/uL (0.4-5.4); Lymphocytes % (auto) 25.3 % (10.0-50.0); Mean Corpuscular Hgb Conc. 33.7 g/dL (32.0-36.0); Mean Corpuscular Volume 97.9 fL (80.0-100.0); Monocytes # (auto) 0.4 10 ^3/uL (0-1.3); Monocytes % (auto) 9.7 % (0.0-12.0); Neutrophils # (auto) 2.9 10 ^3/uL (1.6-8.6); Neutrophils % (auto) 63.1 % (37.0-80.0); Nucleated Red Blood Cells % 0.1 %; Platelet Count (auto) 207 10^3/uL (140-450); Red Blood Cells 4.71 10^6/uL (4.5-5.90); Red Cell Distribution Width 14.4 % (11.8-14.3); White Blood Cell 4.6 10^3/uL (4.4-10.8)
[2025-02-19 11:44] LABS: Alkaline Phosphatase 76 U/L (46-116); Anion Gap 8 (5-15); Aspartate Aminotransferase 32 U/L (13-40); BUN/Creatinine Ratio 11.6 (10.0-20.0); Blood Urea Nitrogen 10 mg/dL (9-23); Calcium 9.9 mg/dL (8.7-10.4); Carbon Dioxide 28 mmol/L (20-31); Glucose 105 mg/dL (74-106); Sodium 144 mmol/L (136-145); Total Protein 7.8 g/dL (5.7-8.2)
[2025-02-19 11:45] LABS: Bilirubin, Total 0.6 mg/dL (0.2-1.0)
[2025-02-19 11:50] LABS: Alanine Aminotransferase 50 U/L (7-40); Chloride 108 mmol/L (98-107)
[2025-02-19 12:01] LABS: Bilirubin, Direct 0.2 mg/dL (<0.3)
== END 2025-02-19 17:00 | disposition home or self-care (01) ==
LOC: LAB 11:05
PROVIDERS: ATTEND Urology
DX: N40.1 Benign prostatic hyperplasia with lower urinary tract symptoms (principal)
CPT/HCPCS: 36415; 80048; 80076; 84153; 84403; 85025

== ENCOUNTER → 2025-07-17 | Outpatient (CLI) | payer BC ==
[2025-07-17 10:20] LABS: Triglycerides 85 mg/dL (< 150)
[2025-07-17 10:22] LABS: Cholesterol 188 mg/dL (< 200)
[2025-07-17 10:41] LABS: HDL Cholesterol 96 mg/dL (40-59)
== END | disposition home or self-care (01) ==
LOC: LAB 08:43
PROVIDERS: ATTEND Internal Medicine
DX: N40.0 Benign prostatic hyperplasia without lower urinary tract symptoms (principal); E78.5 Hyperlipidemia, unspecified
CPT/HCPCS: 36415; 80061; 84153